=== PATIENT | female | born 1990 | race American Indian/Alaskan Native ===

== ENCOUNTER 2016-12-22 09:19 | Emergency (ER) | payer BC, MEDICAID ==
[2016-12-22 09:31] VITALS: BP 141/81; PULSE 91; TEMP 98.2; O2SAT 100
--- NOTE | 2016-12-22 10:00 | C.PDOC ---
History Of Present Illness 26 y/o F c PMHx asthma p/w cough and hoarse voice x 1 week. She states that she has been using her albuterol pump but does not think this feels like her asthma. She states she had rhinorrhea and sneezing earlier which is largely resolved but she continues to have a dry, nonproductive cough with hoarse voice. She denies fever, dyspnea, stiff neck, vomiting. Time Seen by Provider: 12/22/16 09:33 Chief Complaint (Nursing): Cough, Cold, Congestion Past Medical History Vital Signs: Last Vital Signs Temp 98.2 F 12/22/16 09:29 Pulse 91 H 12/22/16 09:29 Resp 18 12/22/16 09:45 BP 141/81 12/22/16 09:29 Pulse Ox 100 12/22/16 09:29 - Medical History PMH: Asthma Family History: States: No Known Family Hx - Social History Hx Alcohol Use: Yes Hx Substance Use: No - Immunization History Hx Tetanus Toxoid Vaccination: No Hx Influenza Vaccination: No Hx Pneumococcal Vaccination: No Review Of Systems Except As Marked, All Systems Reviewed And Found Negative. Constitutional: Negative for: Fever Respiratory: Negative for: Shortness of Breath Physical Exam - Physical Exam Appears: No Acute Distress Skin: No Rash Head: Normacephalic Ear(s): Bilateral: Normal Nose: No Discharge Oral Mucosa: Moist Throat: No Erythema, No Exudate Neck: Normal ROM, Supple Cardiovascular: Rhythm Regular Respiratory: Normal Breath Sounds, No Rhonchi, No Wheezing Extremity: Bilateral: Normal ROM Neurological/Psych: Normal Speech, Normal Cognition Gait: Steady ED Course And Treatment O2 Sat by Pulse Oximetry: 100 Medical Decision Making Medical Decision Making: Patient with URI symptoms and now lingering nonproductive cough and hoarse voice. Advised treatment with ibuprofen, cough suppressant, humidifier, continue albuterol if coughing. Disposition - Disposition Disposition: HOME/ ROUTINE Disposition Time: 10:00 Condition: STABLE Prescriptions: guaiFENesin/Dextromethorphan [Q-Tussin Dm 10 MG/5 Ml-100 MG/5 Ml 120 Ml] 10 ml PO Q4 #118 ml Ibuprofen [Motrin] 600 mg PO Q6 #25 tab Instructions: Upper Respiratory Infection (ED) Forms: Work Excuse - Clinical Impression Clinical Impression: Upper respiratory infection
[2016-12-22 10:03] VITALS: RESP 18
== END 2016-12-22 10:12 | disposition home or self-care (01) ==
LOC: C.ER 09:19
DX: J06.9 Acute upper respiratory infection, unspecified (principal)

== ENCOUNTER 2017-02-26 10:11 | Emergency (ER) | payer BC, MEDICAID ==
[2017-02-26 10:23] VITALS: O2SAT 100
--- NOTE | 2017-02-26 11:24 | C.PDOC ---
History Of Present Illness 26 y/o female presents to the ED with complaints of abscess to left inguinal area x4 days with scant seropurulent discharge. Denies fever, chills or any other complaints. Time Seen by Provider: 02/26/17 11:24 Chief Complaint (Nursing): Abnormal Skin Integrity History Per: Patient History/Exam Limitations: no limitations Onset/Duration Of Symptoms: Days Current Symptoms Are (Timing): Still Present Quality Of Symptoms: Draining Severity: Mild Recent travel outside of the [place]: No Past Medical History Reviewed: Historical Data, Nursing Documentation, Vital Signs Vital Signs: Last Vital Signs Temp 97.9 F 02/26/17 10:22 Pulse 79 02/26/17 10:22 Resp 20 02/26/17 10:22 BP 117/76 02/26/17 10:22 Pulse Ox 100 02/26/17 12:04 - Medical History PMH: Asthma Family History: States: Unknown Family Hx - Social History Hx Alcohol Use: No Hx Substance Use: No - Immunization History Hx Tetanus Toxoid Vaccination: No Hx Influenza Vaccination: No Hx Pneumococcal Vaccination: No Review Of Systems Constitutional: Negative for: Fever, Chills Skin: Positive for: Other (abscess to left inguinal area, draining) Physical Exam - Physical Exam Appears: Non-toxic, No Acute Distress Skin: Other ((+) abscess to left inguinal area with seropurulent drainage) Extremity: Normal ROM Extremity: Bilateral: Atraumatic Neurological/Psych: Oriented x3, Normal Speech, Normal Cognition ED Course And Treatment O2 Sat by Pulse Oximetry: 100 (room air) Pulse Ox Interpretation: Normal - Incision & Drainage Of Abscess Anesthesia: Lidocaine 2%, With Epi Prep Used: Betadine Procedure: Incised W/Scalpel Blade#: (11), Drained Pus, Probed To Break Up Loculations, Packed W/Gauze Disposition Counseled Patient/Family Regarding: Diagnosis, Need For Followup - Disposition Referrals: [facility] [Provider Group] Disposition: HOME/ ROUTINE Disposition Time: 12:02 Condition: IMPROVED Additional Instructions: RETURN 2 DAYS FOR PACKING CHANGE MOTRIN TYLENOL FOR PAIN ICE TO AFFECTED AREA Instructions: Abscess Incision and Drainage (ED) Forms: General Discharge Instructions, [facility] (Hungarian), Work Excuse - Clinical Impression Clinical Impression: Abscess - Scribe Statement The provider has reviewed the documentation as recorded by the Elisabeth Cavazos Provider Attestation: All medical record entries made by the Maria Eugeniaibmatilda were at my direction and personally dictated by me. I have reviewed the chart and agree that the record accurately reflects my personal performance of the history, physical exam, medical decision making, and the department course for this patient. I have also personally directed, reviewed, and agree with the discharge instructions and disposition.
[2017-02-26 12:12] VITALS: BP 116/80; PULSE 76; RESP 18; TEMP 97.8
== END 2017-02-26 12:30 | disposition home or self-care (01) ==
LOC: C.ER 10:11
DX: L02.214 Cutaneous abscess of groin (principal)
CPT/HCPCS: 10060; 96372; 99284; J1885

== ENCOUNTER 2017-02-28 10:05 | Emergency (ER) | payer BC, MEDICAID ==
[2017-02-28 10:32] VITALS: BP 128/74; PULSE 96; RESP 16; TEMP 98.4; O2SAT 100
--- NOTE | 2017-02-28 10:42 | C.PDOC ---
History Of Present Illness 26 y/o female presents to the ED for wound check, is s/p I & D of left groin abscess (packed) 2 days ago. Pt states that area has become smaller, and is less painful now. She has not taken antibiotics, and denies drainage, fever, chills. Time Seen by Provider: 02/28/17 10:26 Chief Complaint (Nursing): Abnormal Skin Integrity History Per: Patient History/Exam Limitations: no limitations Onset/Duration Of Symptoms: Days (2) Current Symptoms Are (Timing): Still Present Location Of Injury: Left: Abdomen, Anterior: Abdomen Quality Of Symptoms: denies: Itching, Swollen, Draining Severity: Mild Additional History Per: Patient Past Medical History Reviewed: Historical Data, Nursing Documentation, Vital Signs Vital Signs: Last Vital Signs Temp 98.4 F 02/28/17 10:20 Pulse 96 H 02/28/17 10:20 Resp 16 02/28/17 10:20 BP 128/74 02/28/17 10:20 Pulse Ox 100 02/28/17 11:50 - Medical History PMH: Asthma Family History: States: No Known Family Hx - Social History Hx Alcohol Use: No Hx Substance Use: No - Immunization History Hx Tetanus Toxoid Vaccination: No Hx Influenza Vaccination: No Hx Pneumococcal Vaccination: No Review Of Systems Except As Marked, All Systems Reviewed And Found Negative. Constitutional: Negative for: Fever, Chills Cardiovascular: Negative for: Chest Pain, Palpitations Respiratory: Negative for: Cough, Shortness of Breath Skin: Positive for: Other (left groin wound, no drainage) Physical Exam - Physical Exam Appears: Well, Non-toxic, No Acute Distress Skin: Warm, Dry, Other (1cm open wound with packing intact atleft inguinal area , no purulent discharge, fluctuance, or induration; well healing wound) Oral Mucosa: Moist Cardiovascular: Rhythm Regular Respiratory: Normal Breath Sounds, No Accessory Muscle Use, No Rales, No Rhonchi , No Wheezing Gastrointestinal/Abdominal: Normal Exam, Bowel Sounds, Soft, No Tenderness, Other (obese) Neurological/Psych: Oriented x3 ED Course And Treatment O2 Sat by Pulse Oximetry: 100 (RA) Pulse Ox Interpretation: Normal Progress Note: Packing was removed by me, and area covered wound with gauze. Patient tolerated procedure well. She was discharged home, instructed to keep area clean and dry, and follow up with PMD in 1-2 days. She understands she should return to Ed if symptoms worsen. Reevaluation Time: 10:45 Reassessment Condition: Improved Disposition Counseled Patient/Family Regarding: Diagnosis, Need For Followup - Disposition Referrals: Melissa Paris MD [Staff Provider] - Disposition: HOME/ ROUTINE Disposition Time: 10:45 Condition: STABLE Additional Instructions: KEEP AREA CLEAN AND DRY FOLLOW UP WITH YOUR DOCTOR IN 1-2 DAYS RETURN TO ER IF AREA BECOMES MORE PAINFUL, RED, SWOLLEN, ETC Instructions: Acute Wound Care (ED) Forms: [employer] (Urdu) Print Language: THAI - POA Present On Arrival: None - Clinical Impression Clinical Impression: Visit for wound check, Abscess packing removal - Scribe Statement The provider has reviewed the documentation as recorded by the Scribe Luisana Villeda All medical record entries made by the Scribe were at my direction and personally dictated by me. I have reviewed the chart and agree that the record accurately reflects my personal performance of the history, physical exam, medical decision making, and the department course for this patient. I have also personally directed, reviewed, and agree with the discharge instructions and disposition.
== END 2017-02-28 10:46 | disposition home or self-care (01) ==
LOC: C.ER 10:05
DX: Z48.00 Encounter for change or removal of nonsurgical wound dressing (principal)

== ENCOUNTER 2017-04-26 15:49 | Emergency (ER) | payer BC, MEDICAID ==
[2017-04-26 15:56] VITALS: BP 117/80; PULSE 69; RESP 18; TEMP 98; O2SAT 96
--- NOTE | 2017-04-26 16:26 | C.PDOC ---
History Of Present Illness 26 year old female who complains of glass in her right foot for one month. Patient reports she stepped on broken glass and comes in today because the area has become painful. Patient denies fever, drainage or other complaints. Time Seen by Provider: 04/26/17 15:58 Chief Complaint (Nursing): Lower Extremity Problem/Injury History/Exam Limitations: no limitations Onset/Duration Of Symptoms: Gradual, Worse Since (1 month ago) Current Symptoms Are (Timing): Still Present - Ankle/Foot Description Of Injury: Struck With Object (glass object on her right heel) Past Medical History Reviewed: Historical Data, Nursing Documentation, Vital Signs Vital Signs: Last Vital Signs Temp 98 F 04/26/17 15:52 Pulse 69 04/26/17 15:52 Resp 18 04/26/17 15:52 BP 117/80 04/26/17 15:52 Pulse Ox 96 04/26/17 17:49 - Medical History PMH: Asthma Surgical History: No Surg Hx Family History: States: Unknown Family Hx - Social History Hx Alcohol Use: No Hx Substance Use: No - Immunization History Hx Tetanus Toxoid Vaccination: No Hx Influenza Vaccination: No Hx Pneumococcal Vaccination: No Review Of Systems Constitutional: Negative for: Fever Eyes: Negative for: Vision Change Cardiovascular: Negative for: Palpitations Respiratory: Negative for: Shortness of Breath Gastrointestinal: Negative for: Vomiting Musculoskeletal: Positive for: Foot Pain Skin: Negative for: Rash, Bruising Neurological: Negative for: Weakness, Numbness, Headache Physical Exam - Physical Exam Appears: Well, Non-toxic, No Acute Distress Skin: Normal Color, Warm, Dry, Other (bloody scab to right lateral heel, palpable dense body in area) Head: Atraumatic, Normacephalic Eye(s): bilateral: Normal Inspection, EOMI Nose: Normal Oral Mucosa: Moist Neck: Normal ROM Chest: Symmetrical Extremity: Normal ROM, No Pedal Edema, No Swelling Neurological/Psych: Oriented x3, Normal Speech Gait: Steady ED Course And Treatment O2 Sat by Pulse Oximetry: 96 (room air) Pulse Ox Interpretation: Normal Medical Decision Making Medical Decision Makin04/26/2017 Impression: 26 y/o female with foreign body to foot Plan: -- Keflex -- Right foot x-ray -- Reassess and disposition Re-evaluation: xray ordered and reviewed by me showing radiopaque wedge shaped foreign body to lateral heel. spoke with podiatry: Resident wants patient to got to podiatry clinic tomorrow, recommends prophylactic antibiotic and surgical shoe. Discussed results and plan with patient. Patient understands results and is agreeable with plan. All questions answered. Disposition Counseled Patient/Family Regarding: Diagnosis, Need For Followup, Rx Given - Disposition Referrals: [facility] [Outside] Mariama Melara DPM [Staff Provider] - Disposition: HOME/ ROUTINE Disposition Time: 16:26 Condition: STABLE Additional Instructions: Please follow up in the podiatry clinic tomorrow for evaluation take antibiotic twice daily as preventive medication for infection Prescriptions: Cephalexin [cephalexin] 500 mg PO Q12 #10 cap Instructions: Soft Tissue Foreign Body (ED) Forms: [facility] (Irish), Work Excuse - POA Present On Arrival: None - Clinical Impression Clinical Impression: Foreign body in right foot - Scribe Statement The provider has reviewed the documentation as recorded by the Scribe 04/26/2017 Scribe Attestation: Karla Mckeon MD Scribe Attestation: All medical record entries made by the Scribe were at my direction and personally dictated by me. I have reviewed the chart and agree that the record accurately reflects my personal performance of the history, physical exam, medical decision making, and the department course for this patient. I have also personally directed, reviewed, and agree with the discharge instructions and disposition.
--- NOTE | 2017-04-26 17:06 | RAD ---
Right foot three views History: Foreign body. Comparison: None available. Findings: On the oblique view, there is a 3 millimeter rounded foci of increased attenuation consistent with known glass seen within the soft tissues at the lateral volar aspect of the foot. Clinical correlation. Moderate hallux valgus deformity. No evidence of acute displaced fracture or dislocation. Type 1 os navicularis variant. Additional punctate 2 millimeter rounded foci of increased radiodensity seen anterior to the inferior calcaneus near the plantar fascia insertion which may represent some plantar calcaneal spurring. Clinical correlation to site of pain. Subtle foreign body at this level cannot entirely be excluded. Impression: On the oblique view, there is a 3 millimeter rounded foci of increased attenuation consistent with known glass seen within the soft tissues at the lateral volar aspect of the foot. Clinical correlation. Moderate hallux valgus deformity. No evidence of acute displaced fracture or dislocation. Type 1 os navicularis variant. Additional punctate 2 millimeter rounded foci of increased radiodensity seen anterior to the inferior calcaneus near the plantar fascia insertion which may represent some plantar calcaneal spurring. Clinical correlation to site of pain. Subtle foreign body at this level cannot entirely be excluded. Clinical correlation.
== END 2017-04-26 16:44 | disposition home or self-care (01) ==
LOC: C.ER 15:49
DX: S90.851A Superficial foreign body, right foot, initial encounter (principal); W45.8XXA Other foreign body or object entering through skin, initial encounter

== ENCOUNTER 2017-07-26 02:19 | Emergency (ER) | payer BC, MEDICAID ==
[2017-07-26 02:24] VITALS: RESP 18; TEMP 98.1
--- NOTE | 2017-07-26 02:35 | C.PDOC ---
History Of Present Illness 26 year old female presents to the ED c/o vomit with small amount of blood on it. Patient reports she drank a small amount of alcohol before that caused her to vomit and she noticed a small amount of blood in it. Patient reports she had similar episode in the past, right now she states not feeling any pain. Patient denies fever, nausea, abdominal pain, dysuria, hematuria, back pain. Time Seen by Provider: 07/26/17 02:26 Chief Complaint (Nursing): GI Problem History Per: Patient History/Exam Limitations: no limitations Onset/Duration Of Symptoms: Hrs Current Symptoms Are (Timing): Gone Context: Other (Alcohol) Severity: None Location Of Pain/Discomfort: Diffuse Radiation Of Pain To:: None Quality Of Discomfort: "Pain" Associated Symptoms: Vomiting Alleviating Factors: None Last Bowel Movement: Today Recent travel outside of the [place]: No Additional History Per: Patient Abnormal Vaginal Bleeding: No Past Medical History Reviewed: Historical Data, Nursing Documentation, Vital Signs Vital Signs: Last Vital Signs Temp 98.1 F 07/26/17 02:23 Pulse 90 07/26/17 02:23 Resp 18 07/26/17 02:23 BP 125/76 07/26/17 02:23 Pulse Ox 98 07/26/17 02:39 - Medical History PMH: Asthma Surgical History: No Surg Hx Family History: States: Unknown Family Hx - Social History Hx Alcohol Use: No Hx Substance Use: No - Immunization History Hx Tetanus Toxoid Vaccination: No Hx Influenza Vaccination: No Hx Pneumococcal Vaccination: No Review Of Systems Constitutional: Negative for: Fever, Chills Cardiovascular: Negative for: Chest Pain, Palpitations Respiratory: Negative for: Cough, Shortness of Breath Gastrointestinal: Positive for: Vomiting. Negative for: Abdominal Pain, Diarrhea Skin: Negative for: Rash Neurological: Negative for: Weakness, Numbness Physical Exam - Physical Exam Appears: Non-toxic, No Acute Distress Skin: Normal Color, Warm, Dry Head: Atraumatic, Normacephalic Nose: No Discharge, No Deformity Oral Mucosa: Moist Neck: Normal ROM, Supple Chest: Symmetrical Cardiovascular: Rhythm Regular, No Murmur Respiratory: Normal Breath Sounds, No Rales, No Rhonchi, No Wheezing Gastrointestinal/Abdominal: Soft, No Tenderness, No Distention, No Guarding, No Rebound Extremity: Normal ROM, No Pedal Edema, No Calf Tenderness, No Deformity, No Swelling Neurological/Psych: Oriented x3, Normal Speech, Normal Cognition Gait: Steady ED Course And Treatment - Laboratory Results Result Diagrams: 07/26/17 02:43 07/26/17 02:43 O2 Sat by Pulse Oximetry: 98 (On RA) Pulse Ox Interpretation: Normal Medical Decision Making Medical Decision Making: Impression : vomit with small amount of blood in it Plan: * Blood work * Pepcid 20 mg IVP Disposition - Disposition Disposition: HOME/ ROUTINE Disposition Time: 04:00 Condition: IMPROVED Forms: [facility] (French) - Clinical Impression Clinical Impression: Gastritis - Scribe Statement The provider has reviewed the documentation as recorded by the Scribe Clint Baker All medical record entries made by the Scribe were at my direction and personally dictated by me. I have reviewed the chart and agree that the record accurately reflects my personal performance of the history, physical exam, medical decision making, and the department course for this patient. I have also personally directed, reviewed, and agree with the discharge instructions and disposition.
[2017-07-26 02:46] LABS: BASO # 0.1 K/uL (0.0-0.2); BASO % 0.7 % (0.0-2.0); EOS # 0.1 K/uL (0.0-0.7); EOS % 1.1 % (0.0-4.0); LYMPH # 2.5 K/uL (1.0-4.3); MEAN CELL VOLUME 85.6 fL (81.0-99.0); MEAN CORPUSCULAR HEMOGLOBIN 28.9 pg (27.0-31.0); MEAN CORPUSCULAR HGB CONC 33.8 g/dL (33.0-37.0); MEAN PLATELET VOLUME 7.4 fL (7.2-11.7); MONO # 0.5 K/uL (0.0-0.8); MONO % 6.4 % (0.0-10.0); RED CELL DISTRIBUTION WIDTH 14.1 % (11.5-14.5)
[2017-07-26 02:59] LABS: ALB/GLOB RATIO 1.2 (1.0-2.1); ALKALINE PHOSPHATASE 60 U/L (38-126); ALT/SGPT 18 U/L (9-52); AST/SGOT 16 U/L (14-36); BILIRUBIN,TOTAL 0.4 mg/dL (0.2-1.3); BLOOD UREA NITROGEN 9 mg/dL (7-17); CALCIUM 8.5 mg/dl (8.6-10.4); CARBON DIOXIDE 27 mmol/L (22-30); CHLORIDE 104 mmol/L (98-107); GFR AFRICAN-AMERICAN > 60; GLUCOSE,RANDOM 110 mg/dL (65-105); POTASSIUM 3.7 mmol/L (3.6-5.2); SODIUM 140 mmol/L (132-148); TOTAL PROTEIN 6.9 g/dL (6.3-8.3)
[2017-07-26 04:09] VITALS: BP 145/89; PULSE 82; O2SAT 97
== END 2017-07-26 04:13 | disposition home or self-care (01) ==
LOC: C.ER 02:19
DX: K29.70 Gastritis, unspecified, without bleeding (principal)

== ENCOUNTER 2018-03-18 23:28 | Emergency (ER) | payer BC, MEDICAID ==
[2018-03-19 00:44] VITALS: RESP 20; O2SAT 99
--- NOTE | 2018-03-19 02:26 | C.PDOC ---
History Of Present Illness 27 year old female presents to the ED c/o left foot pain. Patient was seen by PMD/ Podiatry on 03/02 for work related left foot injury and was placed on a walking boot. Patient states today her walking boot got stuck on a escalator which caused her to re injured her foot. Patient denies weakness, numbness. Time Seen by Provider: 03/19/18 00:52 Chief Complaint (Nursing): Lower Extremity Problem/Injury History Per: Patient History/Exam Limitations: no limitations Onset/Duration Of Symptoms: Hrs Current Symptoms Are (Timing): Still Present Recent travel outside of the [place]: No Additional History Per: Patient - Ankle/Foot Description Of Injury: Other Past Medical History Reviewed: Historical Data, Nursing Documentation, Vital Signs Vital Signs: Last Vital Signs Temp 98 F 03/19/18 02:34 Pulse 60 03/19/18 02:34 Resp 20 03/19/18 02:34 BP 130/80 03/19/18 02:34 Pulse Ox 99 03/19/18 02:34 - Medical History PMH: Asthma Surgical History: No Surg Hx Family History: States: Unknown Family Hx - Social History Hx Alcohol Use: No Hx Substance Use: No - Immunization History Hx Tetanus Toxoid Vaccination: No Hx Influenza Vaccination: No Hx Pneumococcal Vaccination: No Review Of Systems Constitutional: Negative for: Fever, Chills Cardiovascular: Negative for: Chest Pain Respiratory: Negative for: Cough, Shortness of Breath Gastrointestinal: Negative for: Nausea, Vomiting, Abdominal Pain Musculoskeletal: Positive for: Foot Pain Neurological: Negative for: Weakness, Numbness Physical Exam - Physical Exam Appears: Non-toxic, No Acute Distress Skin: Normal Color, Warm, Dry Head: Atraumatic, Normacephalic Eye(s): bilateral: Normal Inspection Extremity: Normal ROM, Tenderness (left foot dorsal aspect, left calcaneous area ), No Calf Tenderness, Capillary Refill (< 2 seconds), No Deformity, No Swelling Pulses: Left Dorsalis Pedis: Normal, Right Dorsalis Pedis: Normal Neurological/Psych: Oriented x3, Normal Speech Gait: Steady ED Course And Treatment O2 Sat by Pulse Oximetry: 99 (ON RA) Pulse Ox Interpretation: Normal - Other Rad Left foot X-Ray: Interpreted by Me, Viewed By Me Interpretation: No acute abn Progress Note: Plan: - Motrin 600 mg PO. - Left foot X-Ray. Pt advised to continue motrin and keep boot and follwo up with Podiatry Disposition - Disposition Referrals: Podiatry Clinic [Outside] Disposition: HOME/ ROUTINE Disposition Time: 06:34 Condition: STABLE Additional Instructions: Please follow up with Podiatry Leg elevation May apply ICE Return to ER if worse Instructions: Foot Sprain (DC) Forms: [facility] (Maltese), Work Excuse, Gen Discharge Inst Bolivian - Clinical Impression Clinical Impression: Sprain of left foot - PA / DIRECTOR OF CONTENT MARKETING / Resident Statement MD/DO has reviewed & agrees with the documentation as recorded. - Scribe Statement The provider has reviewed the documentation as recorded by the Scribe Clint Baker All medical record entries made by the Scribe were at my direction and personally dictated by me. I have reviewed the chart and agree that the record accurately reflects my personal performance of the history, physical exam, medical decision making, and the department course for this patient. I have also personally directed, reviewed, and agree with the discharge instructions and disposition.
[2018-03-19 02:35] VITALS: BP 130/80; PULSE 60; TEMP 98
--- NOTE | 2018-03-19 09:02 | RAD ---
Date of service: 03/19/2018 PROCEDURE: Left Foot Radiographs. HISTORY: Pain, walking cast caught in escalator COMPARISON: None. FINDINGS: BONES: Bone alignment and mineralization are normal. There is no acute displaced fracture or bone destruction. JOINTS: Normal. SOFT TISSUES: Normal. OTHER FINDINGS: None. IMPRESSION: No acute displaced fracture or dislocation.
== END 2018-03-19 02:34 | disposition home or self-care (01) ==
LOC: C.ER 23:28
DX: S93.602A Unspecified sprain of left foot, initial encounter (principal); W23.0XXA Caught, crushed, jammed, or pinched between moving objects, initial encounter

== ENCOUNTER 2018-06-30 03:06 | Emergency (ER) | payer BC ==
--- NOTE | 2018-06-30 03:29 | C.PDOC ---
History Of Present Illness 27 year old female presents to the ER with a complaint nonproductive cough for the past few days. Patient states she feels pain on her chest wall when coughing. Denies fever or SOB. Chief Complaint (Nursing): Chest Pain History Per: Patient History/Exam Limitations: no limitations Onset/Duration Of Symptoms: Days Current Symptoms Are (Timing): Still Present Associated Symptoms: denies: Nausea, Dyspnea, Diaphoresis, Syncope Past Medical History Reviewed: Historical Data, Nursing Documentation, Vital Signs - Medical History PMH: Asthma Family History: States: Unknown Family Hx - Social History Hx Alcohol Use: No Hx Substance Use: No - Immunization History Hx Tetanus Toxoid Vaccination: No Hx Influenza Vaccination: No Hx Pneumococcal Vaccination: No Review Of Systems Constitutional: Negative for: Fever, Chills Cardiovascular: Negative for: Palpitations Respiratory: Positive for: Cough. Negative for: Sputum Gastrointestinal: Negative for: Nausea, Vomiting Genitourinary: Negative for: Dysuria, Hematuria Musculoskeletal: Positive for: Other (Chest wall pain when coughing) Neurological: Negative for: Weakness, Numbness Physical Exam - Physical Exam Appears: Non-toxic Skin: Normal Color, Warm, Dry Head: Atraumatic, Normacephalic Eye(s): bilateral: Normal Inspection Ear(s): Bilateral: Normal Nose: Normal Oral Mucosa: Moist Throat: Normal, No Erythema, No Exudate Neck: Normal, Supple Chest: Symmetrical, No Tenderness Cardiovascular: Rhythm Regular Respiratory: No Rales, Rhonchi (Occasional), No Wheezing, Other (paroxysmal cough) Gastrointestinal/Abdominal: Soft, No Tenderness Neurological/Psych: Oriented x3, Normal Speech ED Course And Treatment - Laboratory Results Result Diagrams: 06/30/18 03:58 06/30/18 03:58 ECG: Interpreted By Me, Viewed By Me ECG Rhythm: Sinus Rhythm ECG Interpretation: Normal, No Acute Changes Interpretation Of ECG: NSR, possible LVH by voltage criteria, borderline tracings. Rate From EC O2 Sat by Pulse Oximetry: 99 Pulse Ox Interpretation: Normal - Radiology CXR: Interpreted by Me, Viewed By Me CXR Interpretation: Yes: No Acute Disease, Other (normal chest film). No: Infiltrates Disposition Counseled Patient/Family Regarding: Diagnosis - Disposition Referrals: [facility] [Outside] Disposition: HOME/ ROUTINE Disposition Time: 04:26 Condition: IMPROVED Prescriptions: Albuterol/Ipratropium [Combivent Respimat] 1 puff IH Q6 #1 inhaler Azithromycin [Zithromax] 500 mg PO DAILY #7 tablet Methylprednisolone [Medrol Dose Pack (21 tabs)] 4 mg PO DAILY #21 mg Instructions: Asthma, Adult (DC), Acute Bronchitis, Adult (DC) Forms: [employer] (Kenyan) - POA Present On Arrival: None - Clinical Impression Clinical Impression: Asthmatic bronchitis - Scribe Statement The provider has reviewed the documentation as recorded by the Scribmatilda Monge All medical record entries made by the Scribe were at my direction and personally dictated by me. I have reviewed the chart and agree that the record accurately reflects my personal performance of the history, physical exam, medical decision making, and the department course for this patient. I have also personally directed, reviewed, and agree with the discharge instructions and disposition.
[2018-06-30] MEDS ORDERED: Albuterol-Ipratrop 3 mg / 0.5 (3 ml) UD INH STA ×3 (03:34→03:39)
[2018-06-30 03:48] VITALS: TEMP 98.2; O2SAT 99
[2018-06-30] MEDS ORDERED: Albuterol-Ipratrop 3 mg / 0.5 (3 ml) UD ONE (03:58)
[2018-06-30 04:02] LABS: BASO # 0.1 K/uL (0.0-0.2); BASO % 0.6 % (0.0-2.0); EOS # 0.4 K/uL (0.0-0.7); HEMOGLOBIN 11.5 g/dL (11.0-16.0); LYMPH # 2.2 K/uL (1.0-4.3); LYMPH % 24.4 % (20.0-40.0); MEAN CELL VOLUME 85.8 fL (81.0-99.0); MEAN CORPUSCULAR HEMOGLOBIN 28.4 pg (27.0-31.0); MEAN CORPUSCULAR HGB CONC 33.1 g/dL (33.0-37.0); MEAN PLATELET VOLUME 7.8 fL (7.2-11.7); MONO # 0.9 K/uL (0.0-0.8); MONO % 10.1 % (0.0-10.0); NEUT # 5.6 K/uL (1.8-7.0); NEUT % 60.9 % (50.0-75.0); RBC 4.06 Mil/uL (3.80-5.20); RED CELL DISTRIBUTION WIDTH 13.9 % (11.5-14.5); WHITE BLOOD COUNT 9.2 K/uL (4.8-10.8)
[2018-06-30 04:13] LABS: ALB/GLOB RATIO 1.2 (1.0-2.1); ALBUMIN 3.8 g/dL (3.5-5.0); ALT/SGPT 23 U/L (9-52); AST/SGOT 16 U/L (14-36); BLOOD UREA NITROGEN 8 mg/dL (7-17); CALCIUM 8.5 mg/dl (8.6-10.4); GFR NON-AFRICAN AMERICAN > 60
[2018-06-30 04:31] VITALS: BP 143/91; PULSE 91; RESP 16
--- NOTE | 2018-06-30 08:39 | RAD ---
Date of service: 06/30/2018 HISTORY: SOB COMPARISON: No prior. TECHNIQUE: Chest PA and lateral FINDINGS: LUNGS: No active pulmonary disease. PLEURA: No significant pleural effusion identified. No pneumothorax apparent. CARDIOVASCULAR: No aortic atherosclerotic calcification present. Normal cardiac size. No pulmonary vascular congestion. OSSEOUS STRUCTURES: No significant abnormalities. VISUALIZED UPPER ABDOMEN: Normal. OTHER FINDINGS: None. IMPRESSION: No active disease.
--- NOTE | 2018-07-02 17:28 | CARD ---
APPROVED REPORT Date of service: 06/30/2018 EKG Measurement Heart [id number] <Conclusion> Normal sinus rhythm Minimal voltage criteria for LVH, may be normal variant Borderline ECG
== END 2018-06-30 04:40 | disposition home or self-care (01) ==
LOC: C.ER 03:06
DX: J45.909 Unspecified asthma, uncomplicated (principal)
CPT/HCPCS: 71046; 80053; 84484; 85025; 85378; 93005; 96374; 99283; J2930

== ENCOUNTER 2018-08-03 17:57 | Emergency (ER) | payer BC ==
[2018-08-03 18:05] VITALS: BMI 39.6
[2018-08-03 18:08] VITALS: RESP 20; O2SAT 98
[2018-08-03] MEDS ORDERED: Alum-Mag Hydrox-Simethicone Susp (30 mL) PO STA (18:38)
[2018-08-03] MEDS ORDERED: Sodium Chloride 0.9% 1,000 ML IV STA (18:38)
--- NOTE | 2018-08-03 18:43 | C.PDOC ---
History Of Present Illness 27 y/o F p/w vomiting and diarrhea x 2 days. States ate chicken last night and shortly after had vomiting. NBNB x 7. Also with NB diarrhea x 7. Denies abdominal pain. Denies fever, chest pain, dyspnea, dysuria, recent travel. Time Seen by Provider: 08/03/18 18:33 Chief Complaint (Nursing): Abdominal Pain Past Medical History Vital Signs: Last Vital Signs Temp 98.8 F 08/03/18 18:04 Pulse 87 08/03/18 18:04 Resp 20 08/03/18 18:04 BP 131/89 08/03/18 18:04 Pulse Ox 98 08/03/18 18:04 - Medical History PMH: Asthma Family History: States: Unknown Family Hx - Social History Hx Alcohol Use: Yes Hx Substance Use: No - Immunization History Hx Tetanus Toxoid Vaccination: No Hx Influenza Vaccination: No Hx Pneumococcal Vaccination: No Review Of Systems Except As Marked, All Systems Reviewed And Found Negative. Constitutional: Negative for: Fever Cardiovascular: Negative for: Chest Pain Physical Exam - Physical Exam Additional Physical Exam Comments: Constitutional: No acute distress. Head: Normocephalic. Atraumatic. Eyes: PERRL. ENT: Moist mucous membranes. Neck: Supple. Cardiovascular: Regular rate. Radial pulse 2+ bilaterally. Chest: No tenderness. Respiratory: Clear to auscultation bilaterally. GI: Soft. Nontender. Nondistended. Back: No CVA tenderness. Musculoskeletal: No tenderness or swelling of extremities. Skin: No rash. Neurologic: Alert, no focal deficit. ED Course And Treatment - Laboratory Results Result Diagrams: 08/03/18 18:43 08/03/18 18:43 O2 Sat by Pulse Oximetry: 98 Medical Decision Making Medical Decision Making: Patient feels better after treatment and would like to go home. Will discharge, f/u PMD, return to ED for worsening pain, fever, vomiting, dyspnea, or any other problem. Disposition - Disposition Referrals: Melissa Paris MD [Staff Provider] - Disposition: HOME/ ROUTINE Disposition Time: 20:26 Condition: STABLE Prescriptions: Ondansetron ODT [Zofran ODT] 4 mg PO Q8 #12 odt Instructions: Viral Gastroenteritis Forms: [employer] (Swedish) - Clinical Impression Clinical Impression: Vomiting, Diarrhea
[2018-08-03 18:47] LABS: BASO % 0.7 % (0.0-2.0); EOS # 0.2 K/uL (0.0-0.7); EOS % 3.2 % (0.0-4.0); LYMPH # 1.3 K/uL (1.0-4.3); LYMPH % 19.1 % (20.0-40.0); MEAN CELL VOLUME 86.8 fL (81.0-99.0); MEAN CORPUSCULAR HEMOGLOBIN 28.2 pg (27.0-31.0); MEAN CORPUSCULAR HGB CONC 32.5 g/dL (33.0-37.0); MEAN PLATELET VOLUME 7.4 fL (7.2-11.7); MONO # 0.4 K/uL (0.0-0.8); MONO % 5.4 % (0.0-10.0); NEUT # 4.7 K/uL (1.8-7.0); NEUT % 71.6 % (50.0-75.0); NRBC % 0.1 % (0.0-2.0); RBC 4.6 Mil/uL (3.80-5.20); RED CELL DISTRIBUTION WIDTH 14.2 % (11.5-14.5); WHITE BLOOD COUNT 6.6 K/uL (4.8-10.8)
[2018-08-03 18:51] LABS: SQUAMOUS EPITHIAL 1 /hpf (0-5); URINE BACTERIA RARE (<OCC); URINE BILIRUBIN NEGATIVE (NEGATIVE); URINE CLARITY Clear (Clear); URINE COLOR Straw (YELLOW); URINE GLUCOSE (UA) NORMAL (Normal); URINE LEUKOCYTE ESTERASE NEG Leu/uL (Negative); URINE PROTEIN NEGATIVE (NEGATIVE); URINE UROBILINOGEN NORMAL mg/dL (0.2-1.0)
[2018-08-03 18:52] LABS: HCG,QUALITATIVE URINE NEGATIVE (NEGATIVE); URINE BLOOD TRACE (NEGATIVE)
[2018-08-03] MEDS ORDERED: Alum-Mag Hydrox-Simethicone Susp (30 mL) ONE (18:54)
[2018-08-03] MEDS ORDERED: Sodium Chloride 0.9% 1,000 ML ONE (18:55)
[2018-08-03 19:12] LABS: ALB/GLOB RATIO 1.5 (1.0-2.1); ALBUMIN 4.3 g/dL (3.5-5.0); ALT/SGPT 16 U/L (9-52); AST/SGOT 20 U/L (14-36); BLOOD UREA NITROGEN 11 mg/dL (7-17); CALCIUM 8.7 mg/dl (8.6-10.4); GFR NON-AFRICAN AMERICAN > 60; LIPASE 20 U/L (23-300)
[2018-08-03 21:22] VITALS: BP 130/82; PULSE 82; TEMP 98.2
== END 2018-08-03 21:22 | disposition home or self-care (01) ==
LOC: C.ER 17:57
DX: R11.10 Vomiting, unspecified (principal); R19.7 Diarrhea, unspecified
CPT/HCPCS: 80053; 81001; 83690; 84703; 85025; 96361; 96374; 96375; 99285; J2405; J7030

== ENCOUNTER 2018-10-08 18:27 | Outpatient (CLI) | payer BC | END 2018-10-08 18:28 | disposition home or self-care (01) | LOC: C.SLEEP 18:28 ==